=== PATIENT | female | born 1990 | race Caucasian/White ===

== ENCOUNTER 2021-10-23 10:57 | Outpatient (REF) | payer OTHER, SELFPAY ==
[2021-10-23 14:14] LABS: Hematocrit 27.1 % (37.0-47.0); Hemoglobin 8.8 g/dl (12.0-16.0); Mean Corpuscular HGB Conc 32.5 g/dl (31.0-35.0); Mean Corpuscular Hemoglobin 29.5 pg (27.0-33.0); Mean Corpuscular Volume 90.9 fL (80.0-98.0); Mean Platelet Volume 9.6 fL (9.4-12.3); Platelet Count 213 X10*3/uL (160-400); Red Blood Count 2.98 X10*6/uL (4.20-5.50)
[2021-10-23 14:28] LABS: Alanine Aminotransferase 13 U/L (0-31); Albumin Level 4.2 g/dL (3.5-5.0); Alkaline Phosphatase 47 U/L (39-117); Anion Gap 9 (12-20); Aspartate Amino Transferase 20 U/L (5-31); Bilirubin Direct 0.2 mg/dL (0.0-0.5); Bilirubin Total 0.4 mg/dL (0.0-1.0); Blood Urea Nitrogen 5 mg/dL (9-16); Calcium 9.6 mg/dL (8.4-10.2); Carbon Dioxide 31 mmol/L (22-29); Chloride 104 mmol/L (96-108); Estimated Glomerular Filt Rate > 60; Glucose Random 83 mg/dL (60-115); Potassium 4.1 mmol/L (3.3-5.1); Sodium 140 mmol/L (135-145); Total Protein 6.8 g/dL (6.5-8.0)
== END 2021-10-23 10:58 | disposition home or self-care (01) ==
LOC: HO.HMGCLDS 10:57
PROVIDERS: PCP Nurse Practitioner Family; Visit Provider Internal Medicine
DX: R10.9 Unspecified abdominal pain (principal); R30.0 Dysuria
CPT/HCPCS: 36415; 80048; 80076; 85027

== ENCOUNTER 2021-11-15 10:05 | Outpatient (REF) | payer OTHER, SELFPAY ==
[2021-11-16 01:37] LABS: CT PCR NOT DETECTED (Not Detect.); NG PCR NOT DETECTED (Not Detect.)
[2021-11-16 09:01] LABS: BV Int Neg Control Negative (Negative); BV Int Pos Control Positive (Positive)
== END 2021-11-15 10:06 | disposition home or self-care (01) ==
LOC: HO.LAB 10:05
PROVIDERS: PCP Nurse Practitioner Family; Visit Provider Advanced Practice Midwife
DX: R10.2 Pelvic and perineal pain (principal); Z11.3 Encounter for screening for infections with a predominantly sexual mode of transmission
CPT/HCPCS: 81003; 81025; 87480; 87491; 87510; 87591; 87660

== ENCOUNTER 2021-11-16 08:25 | Outpatient (REF) | payer OTHER, SELFPAY ==
--- NOTE | ~2021-11-16 | US_ITS ---
EXAMINATION: US ABDOMEN COMPLETE CLINICAL INFORMATION: Anemia, abdominal pain and vomiting. COMPARISON: None TECHNIQUE: Real-time imaging of the abdominal viscera. FINDINGS: PANCREAS: Normal. ABDOMINAL AORTA: The proximal, mid, and distal segments are normal in caliber. INFERIOR VENA CAVA: Visualized portions are normal. LIVER: Normal. The liver is normal in size. The liver contour is normal. Parenchymal echogenicity is normal. No focal hepatic lesion. There is no intrahepatic biliary duct dilatation seen. GALLBLADDER: There is an echogenic polyp measuring 0.5 x 0.5 x 0.6 cm. There is echogenic bile visualized on decubitus view. The gallbladder is physiologically distended without evidence of stones, wall thickening or pericholecystic fluid. COMMON BILE DUCT: Normal in caliber measuring 0.3 cm in diameter. RIGHT KIDNEY: Normal. No hydronephrosis. No renal calculi or focal parenchymal lesions. The kidney measures 10.9 cm in maximum dimension. LEFT KIDNEY: Normal. No hydronephrosis. No renal calculi or focal parenchymal lesions. The kidney measures 11.5 cm in maximum dimension. SPLEEN: Normal. The spleen measures 8.9 cm in maximum dimension. FREE FLUID: None. US/US abdomen complete IMPRESSION: Echogenic bile is noted. Also visualized is small gallbladder polyp. Rest of the abdominal ultrasound is unremarkable.
== END 2021-11-16 08:26 | disposition home or self-care (01) ==
LOC: HO.HMGCX 08:25
PROVIDERS: PCP Nurse Practitioner Family; Visit Provider Internal Medicine
DX: D64.9 Anemia, unspecified (principal); R10.9 Unspecified abdominal pain; R11.10 Vomiting, unspecified
CPT/HCPCS: 76700

== ENCOUNTER 2021-12-11 15:27 | Outpatient (REF) | payer OTHER, SELFPAY ==
--- NOTE | ~2021-12-11 | US_ITS ---
EXAMINATION: US PELVIS CLINICAL INFORMATION: Pelvic and perineal pain. COMPARISON: None TECHNIQUE: Ultrasound of the pelvis is performed using both transabdominal and transvaginal transducers along with Doppler. Transvaginal imaging is performed due to inadequate visualization transabdominally. FINDINGS: Uterus: Anteverted/anteflexed measuring 11.2 x 5.3 x 8.5 cm. Question of 2 segments of the endometrium extending to the cornua bilaterally. The endometrial stripe measures up to 1.0 cm. A tiny anechoic cyst is seen along the anterior margin of the endometrium at the level the body. And IUD is seen positioned low within the endometrial body extending inferiorly to the level the cervix without surrounding abnormality improved Right ovary: 6.5 x 3.3 x 4.5 cm with a volume of 50 mL. A heterogeneous anechoic cyst hypoechoic cyst measures up to 4.2 cm. Color Doppler showed no abnormal vascular flow. Left ovary: 4.7 x 2.2 x 2.1 cm with a volume of 11.5 cm. Several anechoic follicles are seen. Doppler showed no abnormal vascular flow. US/US pelvic and transvaginal IMPRESSION: 1. Arcuate appearance of the uterus without associated abnormality. 2. IUD appears positioned low extending from the level the mid body of the inferiorly to the cervix without surrounding abnormality. The exact location of the arms of the IUD cannot be determined. Extension into the adjacent myometrium cannot be excluded. 3. A tiny endometrial anechoic cystic focus in the mid body is nonspecific, but demonstrates benign features and is likely physiologic. A gestational sac would be unlikely given the LMP history of 2-3 weeks ago. 4. Complex right ovarian cyst is nonspecific, but represents a hemorrhagic physiologic cyst.
== END 2021-12-11 15:28 | disposition home or self-care (01) ==
LOC: HO.HMGCX 15:27
PROVIDERS: Visit Provider Nurse Practitioner Family
DX: R10.2 Pelvic and perineal pain (principal)
CPT/HCPCS: 76830; 76856

== ENCOUNTER 2021-12-13 14:24 | Outpatient (REF) | payer OTHER, SELFPAY ==
[2021-12-14 03:15] LABS: CT PCR NOT DETECTED (Not Detect.); NG PCR NOT DETECTED (Not Detect.)
[2021-12-14 09:25] LABS: BV Int Neg Control Negative (Negative); BV Int Pos Control Positive (Positive)
[2021-12-18 19:31] LABS: HPV mRNA E6/E7 rflx Not Detected (Not Detected)
== END 2021-12-13 14:25 | disposition home or self-care (01) ==
LOC: HO.LAB 14:24
PROVIDERS: PCP Nurse Practitioner Family; Visit Provider Advanced Practice Midwife
DX: Z01.419 Encounter for gynecological examination (general) (routine) without abnormal findings (principal); Z11.51 Encounter for screening for human papillomavirus (HPV); Z20.2 Contact with and (suspected) exposure to infections with a predominantly sexual mode of transmission; A59.01 Trichomonal vulvovaginitis; D64.9 Anemia, unspecified; N83.291 Other ovarian cyst, right side
CPT/HCPCS: 87480; 87491; 87510; 87591; 87624; 87660; 88142